=== PATIENT | male | born 1995 | race Caucasian/White ===

== ENCOUNTER 2022-06-02 10:12 | Emergency (ER) | payer MEDICAID ==
[~2022-06-02] VITALS: Ht 172.7 cm; Wt 77.0 kg
[2022-06-02] MEDS ORDERED: IBUPROFEN 600MG TABLET PO STA (10:22)
[2022-06-02 10:30] VITALS: BP 124/78
[2022-06-02] MEDS ORDERED: HYDROXYZINE 25MG TABLET PO ONE (10:30)
[2022-06-02 11:10] LABS: CHLORIDE 100 mEq/L (98-107)
[2022-06-02 11:19] LABS: BASOPHILS % 0.3 % (0.0-2.0); HEMATOCRIT. 38.1 % (42.0-52.0); HEMOGLOBIN. 12.8 g/dL (14.0-18.0); LYMPHOCYTES % 12.8 % (20.0-50.0); MEAN CORPUSCULAR HEMOGLOBIN 26.5 pg (28.0-32.0); MEAN CORPUSCULAR VOLUME 79.1 fL (80.0-94.0); MEAN PLATELET VOLUME 7.6 fl (7.4-10.4); MONOCYTES % 3.3 % (2.0-8.0); NEUTROPHILS % 83.6 % (40.0-76.0); PLATELET 318 x1000/uL (130-400); RED BLOOD CELL COUNT 4.82 mill/uL (4.7-6.1); RED CELL DISTRIBUTION WIDTH 14.3 % (11.6-14.6)
[2022-06-02] MEDS ORDERED: CEPH500C2 MT (11:32)
== END 2022-06-02 11:42 | disposition home or self-care (01) ==
LOC: ER 10:12
DX: S91.002A Unspecified open wound, left ankle, initial encounter (principal); X58.XXXA Exposure to other specified factors, initial encounter; Y93.89 Activity, other specified; Y92.89 Other specified places as the place of occurrence of the external cause; Y99.8 Other external cause status
CPT/HCPCS: 36415; 80053; 83605; 85025; 99283